=== PATIENT | male | born 1990 | race Caucasian/White ===

== ENCOUNTER 2019-03-03 16:23 | Outpatient (REF) | payer BC, SELFPAY ==
[2019-03-03 19:25] LABS: HGB 14.9 g/dL (13.5-17.5); Mean Corp. HGB Concentration 32.4 g/dL (32.0-36.0); Mean Corpuscular Hemoglobin 27.7 pg (27.0-33.0); Mean Corpuscular Volume 85.5 fL (80-95); Mean Platelet Volume 12.5 fL (8.0-11.0); Platelet Count 225 x1000/uL (130-400); RBC 5.38 m/cumm (4.50-6.00); RBC Distribution Width 13.2 % (11.8-14.1); White Blood Cell Count 7.47 k/cumm (4.4-10.8)
[2019-03-03 19:43] LABS: Anion Gap 10.4 mmol/L (3-11); BUN 22 mg/dL (7-18); CO2 26.6 mmol/L (21.0-32.0); CREATININE 0.88 mg/dL (0.70-1.30); Chloride 104 mmol/L (98-107); Glucose 76 mg/dL (70-100); Potassium 4.8 mmol/L (3.5-5.1); Sodium 141 mmol/L (136-145)
== END 2019-03-03 16:43 ==
LOC: NCHCN 16:23
PROVIDERS: PCP Family Medicine; Visit Provider Family Medicine
DX: Z79.1 Long term (current) use of non-steroidal anti-inflammatories (NSAID) (principal)
CPT/HCPCS: 80048; 85027

== ENCOUNTER 2019-05-08 11:59 | Outpatient (CLI) | payer BC, SELFPAY ==
--- NOTE | 2019-05-08 11:37 | DI.RAD_ITS ---
EXAM: XR ANKLE LT COMPLETE and left foot complete INDICATION: LT ANKLE PAIN, M25.572, S/P STEPPING INTO HOLE, NONWEIGHTBEARING, SWELLING,. COMPARISON: No previous for comparison. TECHNIQUE: 2D digital imaging was performed. FINDINGS: No acute fracture or dislocation is present in the left ankle or left foot. There is soft tissue swel ling about the ankle particularly laterally. No radiopaque foreign bodies are seen in the soft tissu es. IMPRESSION: No acute fracture or dislocation of the left foot or ankle. Soft tissue swelling about the ankle.
== END 2019-05-08 12:19 ==
PROVIDERS: PCP Family Medicine; Visit Provider Nurse Practitioner
DX: M25.572 Pain in left ankle and joints of left foot (principal); M79.89 Other specified soft tissue disorders
CPT/HCPCS: 73610; 73630

== ENCOUNTER 2019-09-17 16:58 | Outpatient (REF) | payer BC, SELFPAY ==
[2019-09-20 09:54] LABS: SARS-CoV-2 RNA Undetected (Undetected); SARS-CoV-2 Specimen Source Nasopharynx
== END 2019-09-17 17:18 ==
LOC: NCHCN 16:58
PROVIDERS: PCP Family Medicine; Visit Provider Physician Assistant
DX: J06.9 Acute upper respiratory infection, unspecified (principal)
CPT/HCPCS: U0003

== ENCOUNTER 2019-11-11 16:17 | Outpatient (REF) | payer BC, SELFPAY ==
[2019-11-13 07:44] LABS: COVID-19 RT-PCR Result NEGATIVE (Negative)
== END 2019-11-11 16:37 ==
LOC: NCHCN 16:17
PROVIDERS: PCP Family Medicine; Visit Provider Nurse Practitioner Family
DX: Z11.59 Encounter for screening for other viral diseases (principal)
CPT/HCPCS: U0003